=== PATIENT | female | born 1980 | race Caucasian/White ===

== ENCOUNTER 2016-10-05 16:28 | Emergency (ER) | payer BC ==
--- NOTE | 2016-10-08 14:00 | ER ---
ADMIT: 10/05/2016 RM/LOC: ER [facility] MR#: [id number] [id number] [place], [place] [address] AMARILIS SWANN [address] [place] [id number] Emergency Room Report SEX: F AGE: 35 : 1980 DATE: 10/05/2016 HISTORY OF PRESENT ILLNESS: The patient is a 35-year-old female, presents to the emergency room complaining of vomiting, nausea, and diarrhea for the last 2 days. She does not seem to be in very acute distress, but she says she is uncertain if this is a viral situation since her son also was sick at home several weeks ago. PAST MEDICAL HISTORY: Polycystic kidney, hypertension, she has had a cholecystectomy. MEDICATIONS: Takes lisinopril for blood pressure. ALLERGIES: ALLERGIC TO IBUPROFEN. PHYSICAL EXAMINATION: VITAL SIGNS: Vital signs are normal except for the blood pressure of 173/108, heart rate is 111. ABDOMEN: Epigastric discomfort. Bowel sounds are normoactive. Her abdomen has good bowel sounds. No distention. No guarding or rebound. EXTREMITIES: Well perfused. NEURO: Appropriate. The patient improved with medications, given Carafate and Zofran. CLINICAL IMPRESSION: Gastritis with GI disturbances, nausea, vomiting, diarrhea, and gastroenteritis. Prescription of Zofran and Carafate given. SILVINA Wayne / Gurwinder Grigsby MD / kayla JOB #: [id number] CC: John Lutz MD, Attending Physician Alejandro Dean MD, Family Physician
== END 2016-10-05 19:00 | disposition home or self-care (01) ==
LOC: ER 16:28
DX: K29.00 Acute gastritis without bleeding (principal); R19.7 Diarrhea, unspecified; I10 Essential (primary) hypertension; F17.210 Nicotine dependence, cigarettes, uncomplicated; Z88.8 Allergy status to other drugs, medicaments and biological substances; Z79.899 Other long term (current) drug therapy

== ENCOUNTER 2016-11-30 21:28 | Emergency (ER) | payer BC ==
--- NOTE | 2016-12-01 06:25 | ER ---
ADMIT: 11/30/2016 RM/LOC: ER [facility] MR#: [id number] [address] [facility] [address] AMARILIS SWANN [address] [place] [address] Emergency Room Report SEX: F AGE: 36 : 1980 DATE: 11/30/2016 The patient is a 36-year-old female, crushed her left 2nd and 3rd finger tips in a car door tonight. Exam remarkable for nontoxic, afebrile female with abrasions over the dorsum 2nd and 3rd fingers DIP joints. No subungual hematoma or loss of motion. X-ray negative. Advised Xylocaine 2% digital block, ice, Tylenol, Motrin, and follow up with Dr. Mcgrath as needed. Eben Lopez MD/ kayla JOB #: [id number] CC: Eben Lopez MD, Attending Physician Calista Mcgrath MD, Family Physician Calista Mcgrath MD
== END 2016-11-30 22:07 | disposition home or self-care (01) ==
LOC: ER 21:28
DX: S67.191A Crushing injury of left index finger, initial encounter (principal); S67.193A Crushing injury of left middle finger, initial encounter; Z98.890 Other specified postprocedural states; F17.210 Nicotine dependence, cigarettes, uncomplicated; Z88.6 Allergy status to analgesic agent; W23.0XXA Caught, crushed, jammed, or pinched between moving objects, initial encounter